=== PATIENT | female | born 1960 | race Caucasian/White ===

== ENCOUNTER → 2021-02-10 10:48 | Outpatient (CLI) | payer MEDICAID, SELFPAY ==
[2021-02-10 11:39] LABS: Blood Urea Nitrogen 19 mg/dl (7-17); Estimated Glomerular Filt Rate 36 ml/min (>60); GFR (African American) 43 ML/MIN (>60)
== END ==
PROVIDERS: Visit Provider Surgery
DX: Z01.812 Encounter for preprocedural laboratory examination (principal); K43.9 Ventral hernia without obstruction or gangrene
CPT/HCPCS: 36415; 82565; 84520

== ENCOUNTER → 2021-02-17 10:16 | Outpatient (CLI) | payer MEDICAID, SELFPAY ==
--- NOTE | 2021-02-17 10:17 | CT_ITS ---
PROCEDURE: CT ABDOMEN PELVIS W CON CLINICAL INDICATION: ventral hernia eval COMPARISON: No exams were available for comparison TECHNIQUE: IV Contrast: 75ML Isovue 370 Oral Contrast Redicat Axial images obtained with sagittal and coronal reformats. All CT scans at the facility use one or more dose reduction, viz: automated exposure control, ma/kV adjustment per patient size (including targeted exams where dose is matched to indication, i.e. head), or iterative reconstruction technique. FINDINGS: LOWER THORAX: Minimal atelectatic or fibrotic change within the lingula ABDOMEN & PELVIS: There has been a prior cholecystectomy. The liver has an unremarkable appearance as does the spleen. There is a small hypodense area in the tail the pancreas at 8 mm some of which may be due to partial volume averaging from the peripancreatic fat. There is a left adrenal mass measuring 2.8 x 2 cm and is hyperdense on the post enhanced image measuring 70 Hounsfield units. 10 minutes delayed density is 27 Hounsfield units. Small right adrenal nodule is present at 13 mm. There is mild prominence of the renal pelvis on both sides. No ureteral calculi or renal calculi are evident. No pelvic mass or abnormal fluid collection. Prior appendectomy. No evidence of diverticulitis. There is a ventral abdominal wall hernia which is 4 cm cephalad to the umbilicus. This contains fat. The orifice of the hernia measures 2 cm in with. Degenerative changes are present in the lumbar spine with a Schmorl's node along the superior endplate of L3 and T11 IMPRESSION: 1. Small to medium-sized ventral abdominal wall hernia 4 cm cephalad to the umbilicus containing fat. 2. Bilateral adrenal masses left larger than right possibly due to adenomas. MRI may provide further evaluation with adrenal protocol without and with contrast. 3. 8 mm hypodensity tail the pancreas indeterminate which may also be better evaluated with MRI without and with contrast with MRCP Dictated by: Angus Hankins MD 02/17/2021 14:19 Angus Hankins MD in [facility] 02/17/2021 14:19
== END ==
PROVIDERS: PCP Surgery; Visit Provider Surgery
DX: K43.9 Ventral hernia without obstruction or gangrene (principal)
CPT/HCPCS: 74177; Q9967

== ENCOUNTER → 2021-03-21 07:44 | Outpatient (CLI) | payer MEDICAID, SELFPAY ==
[2021-03-21 08:05] LABS: Blood Urea Nitrogen 21 mg/dl (7-17); Estimated Glomerular Filt Rate 31 ml/min (>60); GFR (African American) 37 ML/MIN (>60)
--- NOTE | 2021-03-21 08:22 | MR_ITS ---
PROCEDURE: MR ABDOMEN WO/W CON CLINICAL INDICATION: adrenal and pancreas protocol Adrenal mass and pancreatic lesion evaluation. COMPARISON: CT CT ABDOMEN PELVIS W CON from 02/17/2021 TECHNIQUE: Routine multiplanar multi echo sequences are obtained without with contrast and with MRCP images. FINDINGS: There is a ventral abdominal wall hernia which contains fat as described on the previous CT scan. The liver and spleen have an unremarkable appearance. There is a 2.9 x 2 cm left adrenal nodule. This demonstrates variable areas decreased signal intensity on the out of phase images consistent with an adenoma. Minimal enlargement of the anterior aspect of the right adrenal gland may only represent overlapping adrenal limbs as opposed to a nodule. The small hypodensity at the tail the pancreas is once again noted measuring approximately 6 mm. This does not demonstrate increased T2 signal is hypointense on T1 and does not demonstrate any contrast enhancement probably only representing fatty invagination within the tail the pancreas. There is prominence of the renal pelves on both sides. No renal mass apparent. A Schmorl's node is present along the superior endplate of L3. There has been a prior cholecystectomy. No biliary dilatation. No pancreatic ductal dilatation. Common bile duct has an unremarkable appearance without filling defects IMPRESSION: 1. Left adrenal nodule demonstrates some variable decreased signal intensity on the out of phase images suggesting adenomatous involvement. Would suggest a [address] follow-up without and with contrast for confirmation of short term stability due to the size and non classic appearance for an adenoma. 2. The nodular lesion noted on the CT scan and tail the pancreas is felt to be due to fatty invagination and not a true nodule. 3. Umbilical hernia containing fat Dictated by: Angus Hankins MD 03/21/2021 11:32 Angus Hankins MD in [facility] 03/21/2021 11:32
== END ==
PROVIDERS: Visit Provider Surgery
DX: E27.8 Other specified disorders of adrenal gland (principal)
CPT/HCPCS: 36415; 74183; 76376; 82565; 84520; A9576

== ENCOUNTER → 2021-04-12 09:50 | Outpatient (CLI) | payer MEDICAID, SELFPAY ==
[2021-04-12 11:16] LABS: Basophils # 0.1 K/mm3 (0-0.2); Basophils % 1.2 % (0.1-2.0); Eosinophils # 0.3 K/mm3 (0.0-0.4); Eosinophils % 6.5 % (0.1-12.0); Hematocrit 38.2 % (37.0-47.0); Hemoglobin 11.8 g/dL (12.2-16.2); Lymphocytes # 2.4 K/mm3 (0.7-4.5); Lymphocytes % 44.6 % (10-50); Mean Corpuscular HGB Conc 30.9 g/dL (31.8-35.4); Mean Corpuscular Hemoglobin 27.9 pg (27.0-31.2); Mean Corpuscular Volume 90.1 fl (81-99); Mean Platelet Volume 10.2 fl (7.4-10.4); Monocytes # 0.4 K/mm3 (0.1-1.0); Monocytes % 7.3 % (1.7-9.3); Neutrophils # 2.1 K/mm3 (1.8-7.8); Neutrophils % 40.5 % (37.0-80.0); Platelet Count 209 K/mm3 (142-424); Red Blood Count 4.24 M/mm3 (4.20-5.40); Red Cell Distribution Width 14.8 % (11.5-17.5); White Blood Count 5.3 K/mm3 (4.8-10.8)
[2021-04-12 15:17] LABS: Anion Gap 16.4 mEq/L (5-15); Blood Urea Nitrogen 17 mg/dl (7-17); Calcium 9.3 mg/dl (8.4-10.2); Carbon Dioxide 24 mmol/L (22.0-30.0); Chloride 105 mmol/L (98-107); Estimated Glomerular Filt Rate 42 ml/min (>60); GFR (African American) 51 ML/MIN (>60); Glucose 103 mg/dl (74-100); Potassium 5.4 mmoL/L (3.5-5.1); Sodium 140 mmol/L (136-145)
== END ==
PROVIDERS: Visit Provider Surgery
DX: Z01.812 Encounter for preprocedural laboratory examination (principal); Z11.52 Encounter for screening for COVID-19; K43.9 Ventral hernia without obstruction or gangrene
CPT/HCPCS: 36415; 80048; 85025; U0003

== ENCOUNTER 2021-04-15 06:03 | Day surgery (SDC) | payer MEDICAID, SELFPAY ==
[2021-04-10 10:02] VITALS: BMI 33.4
[2021-04-15] VITALS (11 sets, daily range): BP systolic 151–156; BP diastolic 59–79; PULSE 55–69; RESP 16–18; TEMP 36.3–43; O2SAT 93–100
--- NOTE | 2021-04-15 07:06 | P.PN_ITS ---
[facility] Anesthesia Checklist - Patient Identification Patient Identification: Arm Band, Verbal (Name & ) - Structural Data Admitted From: Home Planned Operative Procedure/s: lvhr Consent for Planned Operative Procedure(s) Verified: Yes Verified Documents: History and Physical - NPO Status Verified Time NPO: 00:00 - Chart Verification Results Verified: CBC, BMP - Additional verifications Patient : No Anesthesia Reactions: No Hx Blood Transfusions: No Blood Transfusion Reaction: No Cephalosporin Allergy: No Previous Colonoscopy: Yes - Cardiovascular Assessment Heart Sounds: S1 & S2 Pulse Strength: Baseline Pulse Rhythm: Regular Peripheral Edema: No - Airway Assessment C-Spine Mobility Assessed: Yes TMJ Mobility Assessed: Yes Dentition: Edentulous - Neurological Assessment Level of Consciousness: Awake, Alert, Appropriate Hx Seizures: No Numbness or tingling in extremities: No - Anesthesia Plan Anesthesia Risk discussed: Yes Anesthesia Plan: Verified ASA Class: III Anesthesia Type: General [facility] History I have reviewed the patient's past medical history: Yes Medical History: Reports:: Chronic Obstructive Pulmonary Disease (COPD), Hyperlipidemia, Hypertension Denies:: Cancer, Diabetes Mellitus Type 1, Diabetes Mellitus Type 2, Internal Pacemaker, MRSA, Seizures *Have you ever received a pneumonia vaccine?: No *Have you received a flu vaccine this season?: Yes Other Medical History: Reports: Thyroid Disease. Denies: Blood Transfusion Reaction Anesthesia experience/problems:: none Other Surgeries: Yes: Colonoscopy. No: Pacemaker Amputation: No Fractures: No - *Social History Last grade of school completed: High school graduate Smoking Status: Never smoker Alcohol Intake: never Substance Use Type: marijuana *Occupational Status:: disabled Housing: house *Travel in the last 8 weeks: Inside the [facility] Family Hx:: Cancer, Diabetes, Heart Attack, Stroke
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
--- NOTE | 2021-04-15 09:30 | HMH.ANESI ---
[facility] Anesthesia Record Part I Intake, IV Amount: 1,200 Estimated blood loss (mL): 10 Urine output (mL): 400 Blood Pressure: 151/72 SaO2: 93 Pulse Rate: 69 Respiratory Rate: 16 Temperature: 97.9 F Patient is:: Drowsy, Stable Stable to PACU at:: 09:25
--- NOTE | 2021-04-15 10:06 | PC.NURSE ---
0953-detailed report called to SHEYLA Hamilton 0955-pt transported to post op via stretcher w/rossana rails up and left in care of SHEYLA Hamilton with bed locked in lowest position, vss, pt stable
--- NOTE | 2021-04-15 10:46 | HMH.ANESII ---
[facility] Anesthesia Record Part II Discharge Time: 09:55 Destination: Surgical Day Care (OP Surgery) PACU nurse assessment reviewed?: Yes Patient Condition:: Good Anesthesia Complications:: None Swallowing reflex intact?: Yes Cyanosis?: No Blood Pressure: 154/71 Pulse Rate: 58 Temperature: 97.4 F Mental Status: Alert & Oriented Pain level:: 0 Nausea and/or vomitting:: None Intake, IV Amount: 0
[2021-04-15 14:00] LABS: Microscopic,Cath URINE MICROSCOPIC (MICROSCOPIC)
[2021-04-15 14:01] LABS: Appearance,Urine/Cath CLEAR (Clear); Bilirubin,Cath Negative (Negative); Blood, Urine/Cath Negative (Negative); Color,Urine/Cath YELLOW (Yellow); Glucose,Urine/Cath (UA) Negative (Negative); Ketones,Urine/Cath Negative (Negative); Leukocyte Esterase,Cath Negative (Negative); Nitrate,Cath Negative (Negative); PH,Urine/Cath 5.5 (5.0-8.5); Protein,Urine/Cath Negative (Negative); Urobilinogen,Cath 0.2 EU/dl (0.2)
[2021-04-15 14:15] LABS: Bacteria,Urine/Cath TRACE /lpf; WBC,Urine/Cath Occasional #/hpf (0-3)
== END 2021-04-15 10:30 | disposition home or self-care (01) ==
LOC: OR 06:04
PROVIDERS: PCP Family Medicine; Visit Provider Surgery
PROC: 0WQF4ZZ Repair Abdominal Wall, Percutaneous Endoscopic Approach (ICD-10-PCS; CPT 49655; principal; 2021-04-15 07:30)
DX: K43.0 Incisional hernia with obstruction, without gangrene (principal); J44.9 Chronic obstructive pulmonary disease, unspecified; E78.5 Hyperlipidemia, unspecified; I10 Essential (primary) hypertension; E07.9 Disorder of thyroid, unspecified; F12.90 Cannabis use, unspecified, uncomplicated; Z80.9 Family history of malignant neoplasm, unspecified; Z83.3 Family history of diabetes mellitus; Z82.3 Family history of stroke; Z88.1 Allergy status to other antibiotic agents; Z88.5 Allergy status to narcotic agent; Z88.6 Allergy status to analgesic agent
CPT/HCPCS: 49655; 81001; 96374; C1781; J0131; J2405; J2710

== ENCOUNTER → 2021-05-05 09:32 | Outpatient (CLI) | payer MEDICAID, SELFPAY ==
[2021-05-05 09:54] LABS: Blood Urea Nitrogen 31 mg/dl (7-17); Estimated Glomerular Filt Rate 27 ml/min (>60); GFR (African American) 33 ML/MIN (>60)
--- NOTE | 2021-05-05 11:21 | CT_ITS ---
PROCEDURE: CT ABDOMEN PELVIS WO CON CLINICAL INDICATION: post ventrial hernia repair COMPARISON: CT CT ABDOMEN PELVIS W CON from 02/17/2021 TECHNIQUE: Axial images obtained with sagittal and coronal reformats. All CT scans at the facility use one or more dose reduction, viz: automated exposure control, ma/kV adjustment per patient size (including targeted exams where dose is matched to indication, i.e. head), or iterative reconstruction technique. FINDINGS: LOWER THORAX: No acute finding ABDOMEN & PELVIS: Prior cholecystectomy. The liver, spleen, right adrenal gland, and pancreas have an unremarkable appearance. Small bilateral renal cyst. Status post ventral abdominal wall hernia repair. There is some stranding of the fat deep to the abdominal mesh. The mesh appears intact. The hernia sac is once again noted. There is haziness of the peritoneal fat deep to the hernia and may be due to postsurgical changes. Hernia sac itself now has a complex appearance. There is a 3 cm rounded area within the hernia sac which contains some hyperdense components posteriorly and isodense components centrally with fatty density anteriorly. This is consistent with a a small hematoma. The maximum with of the hernia sac is approximately 4.7 cm similar to the previous exam. There is some stranding of the fat along the lower left lateral aspect of the hernia sac. There is mild thickening of the cecum and ascending colon. Degenerative changes are present in the thoracic and lumbar spine IMPRESSION: 1. Status post interval ventral abdominal wall hernia repair. The mesh appears intact. 2. The hernia sac is still present now with a small hematoma within the sac and mild stranding of the fat within the hernia sac. 3. Mild thickening of the cecum and ascending colon nonspecific and may be due to nondistention versus colitis. Dictated by: Angus Hankins MD 05/05/2021 11:55 Agnus Hankins MD in [facility] 05/05/2021 11:55
== END ==
PROVIDERS: Visit Provider Surgery
DX: R10.11 Right upper quadrant pain (principal)
CPT/HCPCS: 36415; 74176; 82565; 84520